=== PATIENT | male | born 1985 | race African-American/Black ===

== ENCOUNTER 2017-05-23 10:58 | Emergency (ER) | payer OTHER ==
[~2017-05-23] VITALS: Ht 185.4 cm; Wt 81.8 kg
[2017-05-23 11:15] VITALS: BP 124/72
== END 2017-05-23 12:43 | disposition home or self-care (01) ==
LOC: ED 12:13
DX: M70.22 Olecranon bursitis, left elbow (principal); Y93.89 Activity, other specified; F12.10 Cannabis abuse, uncomplicated
CPT/HCPCS: 99284